=== PATIENT | female | born 1955 | race Caucasian/White ===

== ENCOUNTER 2020-10-25 06:24 | Emergency (ER) | payer BC ==
[~2020-10-25 06:24] MED LIST: ASPIR LOW81 MG PO; LISINOPRIL10 MG PO; NIACIN500 MG PO; OMEGA-3 EPA &1000 MG PO; PEPCID 20MG TAB20 MG PO
[2020-10-25] MEDS ORDERED: ZOCOR20 M1 PO (06:41)
[2020-10-25 07:12] LABS: BASO # 0.04 (0.02-0.10); EOS % 2.4 % (1.0-5.0); HEMATOCRIT 42.6 % (37.0-47.0); HEMOGLOBIN 14.6 g/dL (12.5-16.0); MEAN CELL VOLUME 92 fl (78-100); MEAN CORPUSCULAR HEMOGLOBIN 32 pg (27-31); MEAN CORPUSCULAR HGB CONC 34 g/dL (33-37); MEAN PLATELET VOLUME 9.2 fl (7.4-10.4); MONO # 0.53 (0.20-0.80); NEU # 4.74 (1.40-6.50); PLATELET COUNT 234 K/mm3 (130-400); RED BLOOD COUNT 4.64 M/mm3 (4.10-5.30); WHITE BLOOD COUNT 8.3 K/mm3 (4.8-10.8)
[2020-10-25 07:24] LABS: ALBUMIN 4.1 g/dL (3.4-4.8); POTASSIUM 3.9 mmol/L (3.5-5.1)
[2020-10-25 07:25] LABS: CALCIUM 9.3 mg/dL (8.3-10.5)
[2020-10-25 07:29] LABS: TOTAL BILIRUBIN 0.7 mg/dL (0.2-1.2)
[2020-10-25 08:19] VITALS: BP 143/89
== END 2020-10-25 08:20 | disposition home or self-care (01) ==
LOC: ED 06:24
PROVIDERS: Nurse Practitioner
DX: J04.0 Acute laryngitis (principal); J02.9 Acute pharyngitis, unspecified; R06.1 Stridor
CPT/HCPCS: J1100

== ENCOUNTER → 2023-11-26 | Outpatient (CLI) | payer MEDICARE, OTHER ==
[~2023-11-26] MED LIST changes: +ZOCOR20 M1 PO
== END ==
LOC: RAD 09:18
DX: M25.572 Pain in left ankle and joints of left foot (principal)